=== PATIENT | female | born 1980 | race Caucasian/White ===

== ENCOUNTER 2016-08-13 15:58 | Emergency (ER) | payer MEDICAID ==
--- NOTE | 2016-08-13 16:24 | ER Document Report ---
ED Medical Screen (RME) - General Stated Complaint: LEFT FOOT TOENAIL PAIN Mode of Arrival: Ambulatory Information source: Patient Notes: Patient complains of ingrown toenail to left foot the past several months that worsened recently. Patient reports drainage from toe. No fever. No history of diabetes. I have greeted and performed a rapid initial assessment of this patient. A comprehensive ED assessment and evaluation of the patient, analysis of test results and completion of the medical decision making process will be conducted by additional ED providers. TRAVEL OUTSIDE OF THE [place] IN LAST 30 DAYS: No - Related Data Allergies/Adverse Reactions: No Known Allergies Allergy (Verified 08/13/16 16:23) Past Medical History Malignancy Medical History: Reports: Hx Cervical Cancer Musculoskeltal Medical History: Reports Hx Musculoskeletal Deformity, Reports Hx Musculoskeletal Trauma Psychiatric Medical History: Reports: Hx Anxiety, Hx Attention Deficit Hyperactivity Disorder Past Surgical History: Reports: Hx Gynecologic Surgery - multiple cone biopsies diagnostic laparoscopy, Hx Hysterectomy, Hx Orthopedic Surgery - r knee/ ganglion cyst r hand and r ankle, Hx Tubal Ligation - Immunizations Immunizations up to date: Yes Hx Diphtheria, Pertussis, Tetanus Vaccination: Yes - 04/21/2016 Physical Exam - Vital signs Vitals: Temp Pulse Resp BP Pulse Ox 98.8 F 102 H 16 121/78 99 08/13/16 16:06 08/13/16 16:06 08/13/16 16:06 08/13/16 16:06 08/13/16 16:06 - Extremities General lower extremity: Tender - Left great toe Course - Vital Signs Vital signs: Temp Pulse Resp BP Pulse Ox 98.8 F 102 H 16 121/78 99 08/13/16 16:06 08/13/16 16:06 08/13/16 16:06 08/13/16 16:06 08/13/16 16:06
[2016-08-13] MEDS ORDERED: IBUPROFEN 800 MG TABLET PO ONE (20:05)
[2016-08-13] MEDS ORDERED: CEPHALEXIN 500 MG CAPSULE PO ONE (20:05)
--- NOTE | 2016-08-13 20:09 | ER Document Report ---
ED Extremity Problem, Lower - General Chief Complaint: Toe Injury Stated Complaint: LEFT FOOT TOENAIL PAIN Time seen by provider: 20:01 Mode of Arrival: Ambulatory Information source: Patient Notes: 35-year-old female presents to ED for a complaint of an left great toe ingrown toenail for several months that seems to have gotten worse recently. She states she she has noted drainage from the toe around the toenail. TRAVEL OUTSIDE OF THE [place] IN LAST 30 DAYS: No - HPI Patient complains to provider of: Pain - Around the left great toe toenail Location: Great Toe Occurred: Other - Several months Onset/Duration: Gradual, Intermittent Quality of pain: Pressure Severity: Moderate Pain Level: 3 Context: Other - Left great toe pain around the toenail A she states drainage but no drainage noted Recent injury: No Associated symptoms: Painful ambulation Exacerbated by: Movement, Walking Relieved by: Nothing - Related Data Allergies/Adverse Reactions: No Known Allergies Allergy (Verified 08/13/16 16:23) Past Medical History - General Information source: Patient - Social History Smoking Status: Former Smoker Chew tobacco use (# tins/day): No Frequency of alcohol use: None Drug Abuse: None Occupation: [employer] Lives with: Family Family History: Arthritis, CAD, Hyperlipidemia, Hypertension, Malignancy, Thyroid Disfunction Patient has suicidal ideation: No Patient has homicidal ideation: No - Past Medical History Cardiac Medical History: Reports: None Pulmonary Medical History: Reports: Hx COPD EENT Medical History: Reports: None Neurological Medical History: Reports: None Endocrine Medical History: Reports: None Renal/ Medical History: Reports: None Malignancy Medical History: Reports: Hx Cervical Cancer GI Medical History: Reports: None Musculoskeltal Medical History: Reports Hx Arthritis, Reports Hx Musculoskeletal Deformity - Carpal tunnel, Reports Hx Musculoskeletal Trauma - 27 broken bones Skin Medical History: Reports None Psychiatric Medical History: Reports: Hx Anxiety, Hx Attention Deficit Hyperactivity Disorder Traumatic Medical History: Reports: Hx Fractures - 27 broken bones Infectious Medical History: Reports: None Past Surgical History: Reports: Hx Gynecologic Surgery - multiple cone biopsies diagnostic laparoscopy, Hx Hysterectomy, Hx Oral Surgery - [place] teeth, Hx Orthopedic Surgery - r knee/ganglion cyst r hand and r ankle, carpal tunnel, Hx Tubal Ligation - Immunizations Immunizations up to date: Yes Hx Diphtheria, Pertussis, Tetanus Vaccination: - 04/21/2016 Review of Systems - Review of Systems Constitutional: No symptoms reported EENT: No symptoms reported Cardiovascular: No symptoms reported Respiratory: No symptoms reported Gastrointestinal: No symptoms reported Genitourinary: No symptoms reported Female Genitourinary: No symptoms reported Musculoskeletal: Other - Left great toe pain Skin: Other - States she's having drainage around her left great toenail Hematologic/Lymphatic: No symptoms reported Neurological/Psychological: No symptoms reported -: Yes All other systems reviewed and negative Physical Exam - Vital signs Vitals: Temp Pulse Resp BP Pulse Ox 98.8 F 102 H 16 121/78 99 08/13/16 16:06 08/13/16 16:06 08/13/16 16:06 08/13/16 16:06 08/13/16 16:06 Interpretation: Normal - General General appearance: Appears well, Alert - HEENT Head: Normocephalic, Atraumatic Eyes: Normal Pupils: PERRL - Respiratory Respiratory status: No respiratory distress Chest status: Nontender Breath sounds: Normal Chest palpation: Normal - Cardiovascular Rhythm: Regular Heart sounds: Normal auscultation Murmur: No - Abdominal Inspection: Normal Distension: No distension Bowel sounds: Normal Tenderness: Nontender Organomegaly: No organomegaly - Back Back: Normal, Nontender - Extremities General upper extremity: Normal inspection, Nontender, Normal color, Normal ROM , Normal temperature General lower extremity: Normal inspection, Normal color, Normal ROM, Normal temperature, Normal weight bearing. No: Samara's sign Foot: Tender - Tender around the left great toe nail patient states this drainage but no drainage noted no redness noted no swelling noted. Patient states that she has had this toenail partially removed in the past - Neurological Neuro grossly intact: Yes Cognition: Normal Orientation: AAOx4 [place] Coma Scale Eye Opening: Spontaneous Sean Coma Scale Verbal: Oriented [place] Coma Scale Motor: Obeys Commands Sean Coma Scale Total: 15 Speech: Normal Motor strength normal: LUE, RUE, LLE, RLE Sensory: Normal - Psychological Associated symptoms: Normal affect, Normal mood - Skin Skin Temperature: Warm Skin Moisture: Dry Skin Color: Normal Location of irregularity: Other - Patient complains of pain and drainage around her left great toenail. No drainage no redness no swelling noted patient complains of tenderness when touched. Course - Re-evaluation Re-evalutation: 02/19/17 20:15 No acute infection noted at the left great toenail. No redness no swelling no drainage noted. Area is tender to the touch. Patient placed on Keflex and given a prescription for Keflex and ibuprofen. Patient to follow up with podiatry. - Vital Signs Vital signs: Temp Pulse Resp BP Pulse Ox 98.8 F 102 H 16 121/78 99 08/13/16 16:06 08/13/16 16:06 08/13/16 16:06 08/13/16 16:06 08/13/16 16:06 Discharge - Discharge Clinical Impression: Pain of left great toe Condition: Stable Disposition: HOME, SELF-CARE Additional Instructions: Ingrown Nail You have an ingrown nail. An ingrown nail develops when the tissues near the nail are pushed up over the nail. Irritation develops and infection follows. An ingrown nail can result from poorly fitting shoes, improper cutting of the nail, or minor injuries. Once the tissues at the edge of the nail swell, the problem can become chronic. Emergency treatment is usually removal of the portion of the nail that has become ingrown. This is followed by hot soaks three to four times a day. Antibiotics may be necessary if infection is present. After the toe heals, make certain there is no pressure on the area, either from shoes or another toe. Trim the toenails straight across, not curved back into the corners. If ingrown nails recur, an operation to remove excess tissue near the nail, or narrowing of the nail, may be necessary. Call the doctor or return if swelling increases, or red streaks, swelling, or swollen glands are found. Cephalexin The antibiotic you've been prescribed is a member of the cephalosporin class. This type of antibiotic covers a wide variety of infections, including those of the skin, lungs, and urinary tract. It's useful for staph infections. This antibiotic is slightly similar to the penicillin family. In rare cases , a person who is allergic to penicillin will also be allergic to this medication. If you have had a severe allergic reaction to penicillin, and have not taken this antibiotic since that time, notify your doctor. Antibiotics which cover many germs ("broad spectrum" antibiotics) are more likely to cause diarrhea or "yeast" infections. Women prone to vaginal yeast problems may suffer an attack after taking this antibiotic. In infants, oral thrush (white spots "stuck" on the cheek) or yeast diaper rash may result. See your doctor if these problems occur. Call at once if you develop itching, hives , shortness of breath, or lightheadedness. Ibuprofen Ibuprofen is an excellent, safe drug for pain control. In addition, it has potent antiinflammatory effects which are beneficial, especially in the treatment of injuries, arthritis, or tendonitis. It's best to take ibuprofen with food. Persons with ulcer disease or allergy to aspirin should notify their physician of this before taking ibuprofen. Take the medication exactly as prescribed. Don't take additional doses unless instructed to do so by your doctor. If you develop wheezing, shortness of breath, hives, faintness, stomach pain, vomiting, or dark black stools, return for re-evaluation at once. Epsom Salt Soaks Soak the wound area in a container of warm epsom salt water. If you can't get the wound area into a bucket or montalvo, use a folded towel soaked in the epsom salt solution and apply to the area. Use clean hot tap water (about the temperature of a very warm bath), mixing in about one (1) teaspoon for every pint of water. Two gallon --> 16 teaspoons Epsom Salts One gallon --> 8 teaspoons Epsom Salts Two quarts --> 4 teaspoons Epsom Salts One quart --> 2 teaspoons Epsom Salts Soak the wound for about 20 minutes while gently moving it around in the water. Repeat this four (4) times a day. FOLLOW-UP CARE: If you have been referred to a physician for follow-up care, call the physician s office for an appointment as you were instructed or within the next two days. If you experience worsening or a significant change in your symptoms, notify the physician immediately or return to the Emergency Department at any time for re-evaluation. Prescriptions: Ibuprofen 800 mg PO Q8HP PRN #14 tablet PRN Reason: Cephalexin Monohydrate [Keflex 500 mg Capsule] 500 mg PO QID #20 capsule Referrals: IAIN SCHULTE NP [Primary Care Provider] - Follow up as needed ARMANI BLOCK DPM [ACTIVE STAFF] - Follow up as needed
[2016-08-13 20:24] VITALS: BP 127/82
== END 2016-08-13 20:24 | disposition home or self-care (01) ==
LOC: ER 15:58
DX: L60.0 Ingrowing nail (principal); M79.675 Pain in left toe(s); J44.9 Chronic obstructive pulmonary disease, unspecified; Z85.41 Personal history of malignant neoplasm of cervix uteri; Z87.891 Personal history of nicotine dependence
CPT/HCPCS: 99283; J3490

== ENCOUNTER 2017-05-16 20:16 | Emergency (ER) | payer SELFPAY ==
--- NOTE | 2017-05-16 20:47 | ER Document Report ---
HPI - HPI Pain Level: 3 Notes: Patient is a 36-year-old female no significant past medical history presents the ED complaining of an insect bite to her left proximal tibia 1 day. Patient states that she noticed the redness around the insect bite was getting worse over the last day and becoming little more painful. Patient states the pain does not radiate. She has not noticed any obvious abscess or purulent discharge. She has not noticed any red streaks. She is otherwise eating and drink without any problems. No other concerns or complaints. Denies any drug allergies. Denies any smoking or IV drug use. Patient states that she has not been in the liu and denies any tick bite. Denies any headache, fever, URI, sore throat, chest pain, palpitations, syncope, cough, shortness of breath, wheeze, dyspnea, abdominal pain, nausea/vomiting/diarrhea, dysuria, hematuria, joint pains, numbness/tingling, muscle paralysis/weakness. No h/o MRSA. - ROS Notes: REVIEW OF SYSTEMS: CONSTITUTIONAL : Denies fever, chills, or sweats. Denies recent illness. EENT: Denies eye, ear, throat, or mouth pain or symptoms. Denies nasal or sinus congestion or discharge. Denies throat, tongue, or mouth swelling or difficulty swallowing. CARDIOVASCULAR: Denies chest pain. Denies palpitations or racing or irregular heart beat. Denies ankle edema. RESPIRATORY: Denies cough, cold, or chest congestion. Denies shortness of breath, difficulty breathing, or wheezing. GASTROINTESTINAL: Denies abdominal pain or distention. Denies nausea, vomiting , or diarrhea. GENITOURINARY: Denies difficulty urinating, painful urination, burning, frequency, blood in urine, or discharge. MUSCULOSKELETAL: Denies back or neck pain or stiffness. Denies joint pain or swelling. SKIN: see hpi NEUROLOGICAL: Denies confusion or altered mental status. Denies passing out or loss of consciousness. Denies dizziness or lightheadedness. Denies headache. Denies weakness or paralysis or loss of use of either side. Denies problems with gait or speech. Denies sensory loss, numbness, or tingling. ALL OTHER SYSTEMS REVIEWED AND NEGATIVE. Dictation was performed using [employer] voice recognition software - REPRODUCTIVE Reproductive: DENIES: : Past Medical History - Social History Smoking Status: Never Smoker Family History: Arthritis, CAD, Hyperlipidemia, Hypertension, Malignancy, Thyroid Disfunction Pulmonary Medical History: Reports: Hx COPD Renal/ Medical History: Denies: Hx Peritoneal Dialysis Malignancy Medical History: Reports: Hx Cervical Cancer Musculoskeltal Medical History: Reports Hx Arthritis, Reports Hx Musculoskeletal Deformity - Carpal tunnel, Reports Hx Musculoskeletal Trauma - 27 broken bones Psychiatric Medical History: Reports: Hx Anxiety, Hx Attention Deficit Hyperactivity Disorder Traumatic Medical History: Reports: Hx Fractures - 27 broken bones Past Surgical History: Reports: Hx Gynecologic Surgery - multiple cone biopsies diagnostic laparoscopy, Hx Hysterectomy, Hx Oral Surgery - [place] teeth, Hx Orthopedic Surgery - r knee/ganglion cyst r hand and r ankle, carpal tunnel, Hx Tubal Ligation - Immunizations Immunizations up to date: Yes Hx Diphtheria, Pertussis, Tetanus Vaccination: - 04/21/2016 Vertical Provider Document - CONSTITUTIONAL Agree With Documented VS: Yes Notes: PHYSICAL EXAMINATION: GENERAL: Well-appearing, well-nourished and in no acute distress. LUNGS: Breath sounds clear to auscultation bilaterally and equal. No wheezes rales or rhonchi. HEART: Regular rate and rhythm without murmurs, rubs, gallops. Musculoskeletal: Lt LE: FROM to passive/active. Strength 5+/5. Extremities: No cyanosis, clubbing, or edema b/l. Peripheral pulses 2+. Capillary refill less than 3 seconds. NEUROLOGICAL: Normal speech, normal gait. Normal sensory, motor exams PSYCH: Normal mood, normal affect. SKIN: There is a small scab (0.2cm) with surrounding erythema (diam-3cm) to the anterior prox tibial area. No abscess, discharge, or streaks. + mild tenderness. No erythema migrans. - INFECTION CONTROL TRAVEL OUTSIDE OF THE [place] IN LAST 30 DAYS: No - RESPIRATORY O2 Sat by Pulse Oximetry: 99 Course - Re-evaluation Re-evalutation: 05/16/17 20:45 Patient is an afebrile, well-hydrated, 36-year-old female who presents the ED with a mild cellulitis to the anterior lower leg. Vitals are stable. PE is otherwise unremarkable. No incision and drainage warranted at this time based on H&P. I will send her home with a prescription for doxycycline to take as directed. Wound instructions reviewed with close monitoring. Recheck with your PCM in 3-5 days. Return to the ED with any worsening/concerning symptoms otherwise as reviewed in discharge. Patient is in agreement. - Vital Signs Vital signs: Temp Pulse Resp BP Pulse Ox 98.0 F 60 18 119/73 99 05/16/17 20:24 05/16/17 20:24 05/16/17 20:24 05/16/17 20:24 05/16/17 20:24 Discharge - Discharge Clinical Impression: Cellulitis Qualifiers: Site of cellulitis: extremity Site of cellulitis of extremity: lower extremity Laterality: left Qualified Code(s): L03.116 - Cellulitis of left lower limb Condition: Stable Disposition: HOME, SELF-CARE Instructions: Cellulitis ([facility]), Doxycycline ([facility]) Additional Instructions: Keep the skin clean wash with soap and water Tylenol/ibuprofen if needed Epson salt soaks may help Warm compresses Apply bacitracin as directed Recheck with your PCM in 3-5 days Monitor for any other worsening symptoms Return to the ED with any worsening symptoms and/or development of fever, headache, chest pain, palpitations, syncope, shortness of breath, trouble breathing, abdominal pain, n/v/d, joint pains, red streaks, purulent discharge, abscess, or other worsening symptoms that are concerning to you. Prescriptions: Doxycycline Hyclate 100 mg PO BID #20 capsule Referrals: [facility] [Provider Group] - Follow up as needed [facility] [Provider Group] - Follow up as needed
[2017-05-16 21:02] VITALS: BP 124/83
== END 2017-05-16 21:02 | disposition home or self-care (01) ==
LOC: ER 20:16
DX: L03.116 Cellulitis of left lower limb (principal); Z85.41 Personal history of malignant neoplasm of cervix uteri; Z90.710 Acquired absence of both cervix and uterus
CPT/HCPCS: 99281

== ENCOUNTER 2017-06-07 16:21 | Emergency (ER) | payer SELFPAY ==
[2017-06-07] MEDS ORDERED: SULFAMETHOXAZOLE/TRIMETHOPRIM 800-160 MG TABLET PO ONE (16:59)
[2017-06-07] MEDS ORDERED: TRAMADOL HCL 50 MG TABLET PO ONE (16:59)
[2017-06-07] MEDS ORDERED: CEPHALEXIN 500 MG CAPSULE PO ONE (17:00)
--- NOTE | 2017-06-07 17:04 | ER Document Report ---
HPI - HPI Patient complains to provider of: skin lesions Onset: Other - 1 month Onset/Duration: Waxing and waning Quality of pain: Achy Pain Level: 4 Context: Patient reports having skin lesions pop up and resolve to her upper and lower extremities for the past month. Patient complains of a stye to her left lower eyelid for the past few days. Patient denies any history of MRSA. Patient denies any fever. Associated Symptoms: Other - Skin sores. denies: Fever Exacerbated by: Denies Relieved by: Denies Similar symptoms previously: No Recently seen / treated by doctor: No - ROS ROS below otherwise negative: Yes Systems Reviewed and Negative: Yes All other systems reviewed and negative - CONSTITUTIONAL Constitutional: DENIES: Fever - EENT EENT: REPORTS: Eye problems. DENIES: Sore Throat - RESPIRATORY Respiratory: DENIES: Trouble Breathing, Coughing - GASTROINTESTINAL Gastrointestinal: DENIES: Nausea, Patient vomiting - REPRODUCTIVE Reproductive: DENIES: : - MUSCULOSKELETAL Musculoskeletal: REPORTS: Extremity pain - DERM Notes: Skin sores Past Medical History - General Information source: Patient - Social History Smoking Status: Never Smoker Frequency of alcohol use: None Drug Abuse: None Occupation: None Lives with: Family Family History: Arthritis, CAD, Hyperlipidemia, Hypertension, Malignancy, Thyroid Disfunction Pulmonary Medical History: Reports: Hx COPD Renal/ Medical History: Denies: Hx Peritoneal Dialysis Malignancy Medical History: Reports: Hx Cervical Cancer Musculoskeltal Medical History: Reports Hx Arthritis, Reports Hx Musculoskeletal Deformity - Carpal tunnel, Reports Hx Musculoskeletal Trauma - 27 broken bones Psychiatric Medical History: Reports: Hx Anxiety, Hx Attention Deficit Hyperactivity Disorder Traumatic Medical History: Reports: Hx Fractures - 27 broken bones Past Surgical History: Reports: Hx Gynecologic Surgery - multiple cone biopsies diagnostic laparoscopy, Hx Hysterectomy, Hx Oral Surgery - [place] teeth, Hx Orthopedic Surgery - r knee/ganglion cyst r hand and r ankle, carpal tunnel, Hx Tubal Ligation - Immunizations Immunizations up to date: Yes Hx Diphtheria, Pertussis, Tetanus Vaccination: - 04/21/2016 Vertical Provider Document - CONSTITUTIONAL Agree With Documented VS: Yes Exam Limitations: No Limitations General Appearance: WD/WN, No Apparent Distress - INFECTION CONTROL TRAVEL OUTSIDE OF THE [place] IN LAST 30 DAYS: No - HEENT HEENT: Atraumatic, Normocephalic Notes: Hordeolum to left lower eyelid, no concern for orbital or preseptal cellulitis - NECK Neck: Normal Inspection - RESPIRATORY Respiratory: No Respiratory Distress O2 Sat by Pulse Oximetry: 99 - CARDIOVASCULAR Pulses: Normal: Radial - BACK Back: Normal Inspection - MUSCULOSKELETAL/EXTREMETIES Musculoskeletal/Extremeties: JOSH GALAVIZ - NEURO Level of Consciousness: Awake, Alert Motor/Sensory: No Motor Deficit - DERM Integumentary: Warm, Dry, Abscess - Patient with early abscess to dorsal aspect of left forearm. Notes: Patient with numerous scabbed skin lesions in various stages of healing Course - Re-evaluation Re-evalutation: 06/07/17 Patient educated on using Bactroban to the skin lesions as well as in the nostrils. Patient also educated on bleach baths - Vital Signs Vital signs: Temp Pulse Resp BP Pulse Ox 98.8 F 77 18 125/72 99 06/07/17 16:42 06/07/17 16:42 06/07/17 16:42 06/07/17 16:42 06/07/17 16:42 Discharge - Discharge Clinical Impression: Abscess Sty, external Qualifiers: Laterality: left Eyelid: lower Qualified Code(s): H00.015 - Hordeolum externum left lower eyelid Condition: Stable Disposition: HOME, SELF-CARE Instructions: Abscess ([facility]), Cephalexin ([facility]), Sty ([facility]), Trimethoprim-Sulfa ( [facility]), Ultram ([facility]) Additional Instructions: Return immediately for any new or worsening symptoms Followup with your primary care provider, call tomorrow to make a followup appointment 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 [Provider Group] - Follow up as needed [facility] [Provider Group] - Follow up as needed
[2017-06-07 17:43] VITALS: BP 124/80
== END 2017-06-07 17:43 | disposition home or self-care (01) ==
LOC: ER 16:21
DX: L02.414 Cutaneous abscess of left upper limb (principal); H00.015 Hordeolum externum left lower eyelid; L98.9 Disorder of the skin and subcutaneous tissue, unspecified; J44.9 Chronic obstructive pulmonary disease, unspecified; Z85.41 Personal history of malignant neoplasm of cervix uteri
CPT/HCPCS: 99283

== ENCOUNTER 2018-06-22 21:47 | Emergency (ER) | payer SELFPAY ==
[2018-06-23 01:04] LABS: APPEARANCE,URINE SLIGHTLY-CLOUDY; BILIRUBIN,URINE NEGATIVE (NEGATIVE); COLOR,URINE YELLOW; GLUCOSE, URINE NEGATIVE (NEGATIVE); KETONES,URINE NEGATIVE (NEGATIVE); LEUKOCYTE ESTERASE,URINE TRACE (NEGATIVE); NITRITE,URINE NEGATIVE (NEGATIVE); PROTEIN,URINE NEGATIVE (NEGATIVE); URINE SPECIFIC GRAVITY 1.016; UROBILINOGEN,URINE NEGATIVE mg/dL (<2.0)
[2018-06-23] MEDS ORDERED: KETOROLAC TROMETHAMINE INJ/PF 30 MG/1 ML SDV IV ONE (01:33)
[2018-06-23] MEDS ORDERED: MORPHINE SULFATE 10 MG/ML INJ IV PRN (01:33)
[2018-06-23] MEDS ORDERED: ONDANSETRON HCL INJ/PF 4 MG/2 ML SDV IV ONE (01:34)
[2018-06-23] MEDS ORDERED: TAMSULOSIN HCL 0.4 MG CAP.SR.24H PO ONE (01:34)
--- NOTE | 2018-06-23 01:36 | ER Document Report ---
ED General - General Chief Complaint: Possible Kidney Stone Stated Complaint: BLOOD IN URINE Time Seen by Provider: 06/22/18 23:48 Notes: Patient is a 37-year-old female without chronic medical problems, does have a history of nephrolithiasis in the past who presents with 3-4 days of progressively worsening pain to her left flank radiating to her left lower abdomen. States that the pain comes and goes and when it is present it is a very severe, stabbing, throbbing pain. Nothing seems to improve or worsen the pain. She has been trying ibuprofen without relief. States this feels identical to when she had a kidney stone approximately 6 months ago which was verified by CT scan. She has never had a complicated kidney stone. She denies fever or constitutional symptoms. No vomiting. She has not seen her general physician regarding today's concerns. TRAVEL OUTSIDE OF THE [place] IN LAST 30 DAYS: No - Related Data Allergies/Adverse Reactions: bees Allergy (Uncoded 06/23/18 01:35) Past Medical History - General Information source: Patient - Social History Smoking Status: Current Every Day Smoker Frequency of alcohol use: Rare Drug Abuse: None Lives with: Spouse/Significant other Family History: Arthritis, CAD, Hyperlipidemia, Hypertension, Malignancy, Thyroid Disfunction Patient has suicidal ideation: No Patient has homicidal ideation: No Pulmonary Medical History: Reports: Hx COPD, Hx Pneumonia Renal/ Medical History: Denies: Hx Peritoneal Dialysis Malignancy Medical History: Reports: Hx Cervical Cancer Musculoskeletal Medical History: Reports Hx Arthritis, Reports Hx Musculoskeletal Deformity - Carpal tunnel, Reports Hx Musculoskeletal Trauma - 27 broken bones Psychiatric Medical History: Reports: Hx Anxiety, Hx Attention Deficit Hyperactivity Disorder, Hx Post Traumatic Stress Disorder Traumatic Medical History: Reports: Hx Fractures - 27 broken bones Past Surgical History: Reports: Hx Gynecologic Surgery - multiple cone biopsies diagnostic laparoscopy, Hx Hysterectomy, Hx Oral Surgery - [place] teeth, Hx Or thopedic Surgery - r knee/ganglion cyst r hand and r ankle, carpal tunnel, Hx Tubal Ligation - Immunizations Immunizations up to date: Yes Hx Diphtheria, Pertussis, Tetanus Vaccination: Yes - 04/21/2016 Review of Systems - Review of Systems Notes: Constitutional: Negative for fever. HENT: Negative for sore throat. Eyes: Negative for visual changes. Cardiovascular: Negative for chest pain. Respiratory: Negative for shortness of breath. Gastrointestinal: Positive for left flank pain Genitourinary: Negative for dysuria. Musculoskeletal: Negative for back pain. Skin: Negative for rash. Neurological: Negative for headaches, weakness or numbness. 10 point ROS negative except as marked above and in HPI. Physical Exam - Vital signs Vitals: Temp Pulse BP Pulse Ox 97.9 F 80 116/67 100 06/22/18 22:35 06/22/18 22:35 06/22/18 22:35 06/22/18 22:35 Interpretation: Normal Notes: PHYSICAL EXAMINATION: GENERAL: Appears moderately uncomfortable but in no acute distress HEAD: Atraumatic, normocephalic. EYES: Pupils equal round and reactive to light, extraocular movements intact, sclera anicteric, conjunctiva are normal. ENT: nares patent, oropharynx clear without exudates. Moist mucous membranes. NECK: Normal range of motion, supple without lymphadenopathy LUNGS: Breath sounds clear to auscultation bilaterally and equal. No wheezes rales or rhonchi. HEART: Regular rate and rhythm without murmurs ABDOMEN: Soft, nontender, normoactive bowel sounds. No guarding, no rebound. No masses appreciated. Left CVA tenderness present on exam EXTREMITIES: Normal range of motion, no pitting or edema. No cyanosis. NEUROLOGICAL: No focal neurological deficits. Moves all extremities spontaneously and on command. PSYCH: Normal mood, normal affect. SKIN: Warm, Dry, normal turgor, no rashes or lesions noted. Course - Re-evaluation Re-evalutation: 06/23/18 01:34 Presents with findings consistent with acute nephrolithiasis. Patient does have a known history of uncomplicated kidney stones that she has passed independently on her own and has had CAT scan confirmation in the past. Urinalysis does show hematuria. Laboratory otherwise unremarkable. Pain was able to be controlled here in the emergency department. Patient is tolerating oral intake. Clinical history is not consistent with an acute abdominal aneurysm or dissection, [place], or pulmonary embolus. Urinalysis does not show findings consistent with an infected stone. We had a risks and benefits conversation about proceeding with CT today versus expectant management as well as strict return precautions. Patient and at the bedside have elected to avoid CT imaging today. Vitals have remained within normal limits. Patient will be discharged with recommendations to follow-up with urology, pain medications, and return precautions. They are in agreement with this plan and verbalized indications return to emergency department. - Vital Signs Vital signs: Temp Pulse Resp BP Pulse Ox 97.9 F 80 116/67 100 06/22/18 22:35 06/22/18 22:35 06/22/18 22:35 06/22/18 22:35 - Laboratory Result Diagrams: 06/23/18 02:34 Laboratory results interpreted by me: 06/23/18 06/23/18 00:30 02:34 Glucose 116 H Urine Blood LARGE H Ur Leukocyte Esterase TRACE H Discharge - Discharge Clinical Impression: Left flank pain, Kidney stone on left side Condition: Good Disposition: HOME, SELF-CARE Additional Instructions: Your symptoms should improve over the course of the next one week. If you continue to have pain for greater than one week or your pain is not controlled with the pain medications that you have been sent home with you need to return to the emergency department. Please also return if you develop fever, persistent vomiting, or any other symptoms that are concerning to you. You should take ibuprofen 600 mg every 6 hours and use the oral morphine as prescribed only for pain not controlled by ibuprofen. You are also been sent home with a medication called Flomax to help pass the stone. You've been given Zofran to assist with nausea. Please follow-up with urology in the next 2-3 days. Prescriptions: Morphine Sulfate [Morphine Ir 15 mg Tablet] 15 mg PO TID PRN #12 tablet PRN Reason: Tamsulosin HCl [Flomax 0.4 mg Cap.sr] 0.4 mg PO DAILY #7 cap.sr.24h
[2018-06-23 02:56] LABS: ANION GAP 11 (5-19); BLOOD UREA NITROGEN 17 mg/dL (7-20); CALCIUM 9.5 mg/dL (8.4-10.2); CARBON DIOXIDE 26 mmol/L (22-30); CHLORIDE 105 mmol/L (98-107); GLUCOSE 116 mg/dL (75-110); POTASSIUM 4.1 mmol/L (3.6-5.0); SODIUM 141.7 mmol/L (137-145)
[2018-06-23 03:28] VITALS: BP 117/83
== END 2018-06-23 03:28 | disposition home or self-care (01) ==
LOC: ER 21:47
DX: N20.0 Calculus of kidney (principal); R10.32 Left lower quadrant pain; F17.200 Nicotine dependence, unspecified, uncomplicated; J44.9 Chronic obstructive pulmonary disease, unspecified
CPT/HCPCS: 99283; 96374; 96375; 36415; 81025; 80048; 81001; J1885; J2270; J2405

== ENCOUNTER 2018-12-03 15:23 | Emergency (ER) | payer SELFPAY ==
--- NOTE | 2018-12-03 16:03 | ER Document Report ---
ED Medical Screen (RME) - General Chief Complaint: Flank Pain Stated Complaint: FLANK PAIN Time Seen by Provider: 12/03/18 15:57 TRAVEL OUTSIDE OF THE [place] IN LAST 30 DAYS: No - HPI Notes: 12/03/18 16:01 Patient is a 38-year-old female with a history of kidney stones who presents complaining of left flank pain that has been waxing and waning since this morning as well as hematuria. Patient has associated nausea without vomiting. He has not had any vaginal discharge, odor, or bleeding and reports a history of hysterectomy. Denies GRIFFIN, fever, neck pain, URI, CP, SOB, back pain, or rash. I have treated and performed a rapid initial assessment of this patient. A comprehensive ED assessment and evaluation of the patient, analysis of test results and completion of medical decision making process will be conducted by additional ED providers. PHYSICAL EXAMINATION: GENERAL: Well-appearing, well-nourished and in no acute distress. A&Ox4. Answers questions appropriately. LUNGS: Breath sounds clear to auscultation bilaterally and equal. No wheezes rales or rhonchi. HEART: Regular rate and rhythm without murmurs, rubs, gallops. ABDOMEN: Soft, nondistended abdomen. No guarding, no rebound. Normal bowel sounds present. + left CVA tenderness. + Left mild abdominal tenderness (cannot elicit thorough abd exam w/o bed, however). - Related Data Allergies/Adverse Reactions: bees Allergy (Uncoded 06/23/18 01:35) Past Medical History Pulmonary Medical History: Reports: Hx COPD, Hx Pneumonia Renal/ Medical History: Denies: Hx Peritoneal Dialysis Malignancy Medical History: Reports: Hx Cervical Cancer Musculoskeltal Medical History: Reports Hx Arthritis, Reports Hx Musculoskeletal Deformity - Carpal tunnel, Reports Hx Musculoskeletal Trauma - 27 broken bones Psychiatric Medical History: Reports: Hx Anxiety, Hx Attention Deficit Hyperactivity Disorder, Hx Post Traumatic Stress Disorder Traumatic Medical History: Reports: Hx Fractures - 27 broken bones Past Surgical History: Reports: Hx Gynecologic Surgery - multiple cone biopsies diagnostic laparoscopy, Hx Hysterectomy, Hx Oral Surgery - [place] teeth, Hx Orthopedic Surgery - r knee/ganglion cyst r hand and r ankle, carpal tunnel, Hx Tubal Ligation - Immunizations Immunizations up to date: Yes Hx Diphtheria, Pertussis, Tetanus Vaccination: Yes - 04/21/2016 Physical Exam - Vital signs Vitals: Temp Pulse Resp BP Pulse Ox 98 F 58 L 18 108/67 99 12/03/18 15:50 12/03/18 15:50 12/03/18 15:50 12/03/18 15:50 12/03/18 15:50 Course - Vital Signs Vital signs: Temp Pulse Resp BP Pulse Ox 98 F 58 L 18 108/67 99 12/03/18 15:50 12/03/18 15:50 12/03/18 15:50 12/03/18 15:50 12/03/18 15:50
[2018-12-03] MEDS ORDERED: ONDANSETRON HCL INJ/PF 4 MG/2 ML SDV IV ONE (16:04)
[2018-12-03] MEDS ORDERED: NORMAL SALINE 1000 ML 1,000 ML IV ONE (16:04)
[2018-12-03] MEDS ORDERED: MORPHINE SULFATE 10 MG/ML INJ IV ONE (16:04)
[2018-12-03] MEDS ORDERED: KETOROLAC TROMETHAMINE INJ/PF 30 MG/1 ML SDV IV ONE (16:04)
[2018-12-03 16:35] LABS: APPEARANCE,URINE SLIGHTLY-CLOUDY; BILIRUBIN,URINE NEGATIVE (NEGATIVE); COLOR,URINE YELLOW; GLUCOSE, URINE NEGATIVE (NEGATIVE); KETONES,URINE NEGATIVE (NEGATIVE); LEUKOCYTE ESTERASE,URINE SMALL (NEGATIVE); NITRITE,URINE NEGATIVE (NEGATIVE); PROTEIN,URINE NEGATIVE (NEGATIVE); URINE SPECIFIC GRAVITY 1.027; UROBILINOGEN,URINE NEGATIVE mg/dL (<2.0)
[2018-12-03 16:44] LABS: ABSOLUTE EOSINOPHILS # (AUTO) 0.2 10^3/uL (0.0-0.6); ABSOLUTE LYMPHOCYTES (AUTO) 1.8 10^3/uL (0.5-4.7); ABSOLUTE MONOCYTES (AUTO) 0.3 10^3/uL (0.1-1.4); ABSOLUTE NEUT (AUTO) 2.6 10^3/uL (1.7-8.2); EOSINOPHILS % (AUTO) 4.6 % (0-6); HEMATOCRIT 37.9 % (36.0-47.0); HEMOGLOBIN 13.1 g/dL (12.0-15.5); LYMPHOCYTES % (AUTO) 36.7 % (13-45); MEAN CORPUSCULAR HEMOGLOBIN 31.5 pg (27.0-33.4); MEAN CORPUSCULAR HGB CONC 34.7 g/dL (32.0-36.0); MEAN CORPUSCULAR VOLUME 91 fl (80-97); MONOCYTES % (AUTO) 6.3 % (3-13); PLATELET COUNT 165 10^3/uL (150-450); RED BLOOD COUNT 4.17 10^6/uL (3.72-5.28); RED CELL DISTRIBUTION WIDTH 13.1 % (11.5-14.0); SEGMENTED NEUTROPHILS % (AUTO) 51.4 % (42-78); TOTAL CELLS COUNTED % (AUTO) 100 %
--- NOTE | 2018-12-03 16:45 | RADIOLOGY REPORT (SQ) ---
EXAM DESCRIPTION: CT ABD/PELVIS NO ORAL OR IV COMPLETED DATE/TIME: 12/03/2018 4:21 pm REASON FOR STUDY: Lt flank pain COMPARISON: 09/05/2012. TECHNIQUE: CT scan of the abdomen and pelvis performed without intravenous or oral contrast. Images reviewed with lung, soft tissue, and bone windows. Reconstructed coronal and sagittal MPR images revi ewed. All images stored on PACS. All CT scanners at this facility use dose modulation, iterative reconstruction, and/or weight based d osing when appropriate to reduce radiation dose to as low as reasonably achievable (ALARA). [facility]: Dose Right [facility]: CareDose [facility]: Dose Right [facility]: Teradose 4D [facility]: Smart Promisec RADIATION DOSE: CT Rad equipment meets quality standard of care and radiation dose reduction techniq ues were employed. CTDIvol: 8.0 mGy. DLP: 433 mGy-cm.mGy. LIMITATIONS: None. FINDINGS: LOWER CHEST: No significant findings. No nodules or infiltrates. NON-CONTRASTED LIVER, SPLEEN, ADRENALS: Evaluation limited by lack of IV contrast. No identified sign ificant masses. PANCREAS: No masses. No peripancreatic inflammatory changes. GALLBLADDER: No identified stones by CT criteria. No inflammatory changes to suggest cholecystitis. RIGHT KIDNEY AND URETER: No suspicious masses. Assessment limited by lack of IV contrast. No signif icant calcifications. No hydronephrosis or hydroureter. LEFT KIDNEY AND URETER: No suspicious masses. Assessment limited by lack of IV contrast. No signifi cant calcifications. No hydronephrosis or hydroureter. AORTA AND RETROPERITONEUM: No aneurysm. No retroperitoneal masses or adenopathy. BOWEL AND PERITONEAL CAVITY: No obvious masses or inflammatory changes. No free fluid. APPENDIX: Normal. PELVIS, BLADDER, AND ABDOMINAL WALL:No abnormal masses. No free fluid. Bladder normal. BONES: No significant findings. OTHER: No other significant finding. IMPRESSION: NO SIGNIFICANT OR ACUTE PROCESS IN THE ABDOMEN OR PELVIS. COMMENT: Quality ID # [id number]: Final reports with documentation of one or more dose reduction techniques (e.g., Automated exposure control, adjustment of the mA and/or kV according to patient size, use of iterative reconstruction technique) TECHNICAL DOCUMENTATION: JOB ID: [id number] [employer]- All Rights Reserved Reading location - IP/workstation name: [email or web address]
[2018-12-03 17:15] LABS: ALANINE AMINOTRANSFERASE 18 U/L (9-52); ALBUMIN 4.7 g/dL (3.5-5.0); ALKALINE PHOSPHATASE 45 U/L (38-126); ANION GAP 9 (5-19); ASPARTATE AMINO TRANSFERASE 22 U/L (14-36); BILIRUBIN,DIRECT 0.3 mg/dL (0.0-0.4); BILIRUBIN,TOTAL 0.5 mg/dL (0.2-1.3); BLOOD UREA NITROGEN 21 mg/dL (7-20); CALCIUM 9.8 mg/dL (8.4-10.2); CARBON DIOXIDE 25 mmol/L (22-30); CHLORIDE 107 mmol/L (98-107); GLUCOSE 97 mg/dL (75-110); LIPASE 52.4 U/L (23-300); TOTAL PROTEIN 7.7 g/dL (6.3-8.2)
[2018-12-03] MEDS ORDERED: HYDROCODONE/ACETAMINOPHEN 5-325 MG TABLET PO ONE (17:43)
[2018-12-03] MEDS ORDERED: SULFAMETHOXAZOLE/TRIMETHOPRIM 800-160 MG TABLET PO ONE (17:44)
[2018-12-03 18:12] VITALS: BP 110/68
--- NOTE | 2018-12-03 19:07 | ER Document Report ---
Entered by HUDSON SAMPSON SCRIBE 12/03/18 1748 Acting as scribe for:ALESSIO WHITTEN DO ED General - General Chief Complaint: Flank Pain Stated Complaint: FLANK PAIN Time Seen by Provider: 12/03/18 15:57 Mode of Arrival: Ambulatory Information source: Patient Notes: Patient is a 38 year old female presenting to the emergency department complaining of hematuria and bilateral flank pain onset this morning. Patient states she felt like she was giving and states she passed a blood clot while urinating. She also complains of nausea, diarrhea and burning with uri nation. She denies any fevers or vomiting. Patient states she has a history of kidney stones and reports her current symptoms feel similar. TRAVEL OUTSIDE OF THE [place] IN LAST 30 DAYS: No - Related Data Allergies/Adverse Reactions: No Known Drug Allergies Allergy (Verified 12/03/18 16:53) bees Allergy (Uncoded 12/03/18 16:53) Past Medical History - General Information source: Patient - Social History Smoking Status: Former Smoker Cigarette use (# per day): No Chew tobacco use (# tins/day): No Family History: Arthritis, CAD, Hyperlipidemia, Hypertension, Malignancy, Thyroid Disfunction Patient has suicidal ideation: No Patient has homicidal ideation: No Pulmonary Medical History: Reports: Hx COPD, Hx Pneumonia Renal/ Medical History: Reports: Hx Kidney Stones Malignancy Medical History: Reports: Hx Cervical Cancer Musculoskeletal Medical History: Reports Hx Arthritis, Reports Hx Musculoskeletal Deformity - Carpal tunnel, Reports Hx Musculoskeletal Trauma - 27 broken bones Psychiatric Medical History: Reports: Hx Anxiety, Hx Attention Deficit Hyperacti vity Disorder, Hx Post Traumatic Stress Disorder Traumatic Medical History: Reports: Hx Fractures - 27 broken bones Past Surgical History: Reports: Hx Gynecologic Surgery - multiple cone biopsies diagnostic laparoscopy, Hx Hysterectomy, Hx Oral Surgery - [place] teeth, Hx Orthopedic Surgery - r knee/ganglion cyst r hand and r ankle, carpal tunnel, Hx Tubal Ligation - Immunizations Immunizations up to date: Yes Hx Diphtheria, Pertussis, Tetanus Vaccination: Yes - 04/21/2016 Review of Systems - Review of Systems Constitutional: No symptoms reported EENT: No symptoms reported Cardiovascular: No symptoms reported Respiratory: No symptoms reported Gastrointestinal: No symptoms reported Genitourinary: See HPI, Burning, Flank pain, Hematuria Female Genitourinary: No symptoms reported Musculoskeletal: No symptoms reported Skin: No symptoms reported Hematologic/Lymphatic: No symptoms reported Neurological/Psychological: No symptoms reported -: Yes All other systems reviewed and negative Physical Exam - Vital signs Vitals: Temp Pulse Resp BP Pulse Ox 98 F 58 L 18 108/67 99 12/03/18 15:50 12/03/18 15:50 12/03/18 15:50 12/03/18 15:50 12/03/18 15:50 - Notes Notes: GENERAL: Alert, interacts well. No acute distress. HEAD: Normocephalic, atraumatic. EYES: Pupils equal, round, and reactive to light. Extraocular movements intact. ENT: Oral mucosa moist, tongue midline. NECK: Full range of motion. Supple. Trachea midline. LUNGS: Clear to auscultation bilaterally, no wheezes, rales, or rhonchi. No respiratory distress. HEART: Regular rate and rhythm. No murmurs, gallops, or rubs. ABDOMEN: Soft, LLQ and suprapubic tenderness palpation. Non-distended. Bowel sounds present in all 4 quadrants. No guarding, rigidity, or rebound. EXTREMITIES: Moves all 4 extremities spontaneously. NEUROLOGICAL: Alert and oriented x3. Normal speech. PSYCH: Normal affect, normal mood. SKIN: Warm, dry, normal turgor. No rashes or lesions noted. Course - Re-evaluation Re-evalutation: 12/03/18 17:46 CBC unremarkable, CMP grossly unremarkable, lipase normal, urinalysis shows large blood, small leukocyte esterase, only 3 squamous epithelial cells. This is been sent for culture. CT scan of the abdomen pelvis does not show any signs of obstruction or stone. Suspect patient just recently passed a kidney stone and she is having residual blood and pain. We will also treat for urinary tract infection with blood using Bactrim 3-day course. Urine sent for culture. Patient discharged home. - Vital Signs Vital signs: Temp Pulse Resp BP Pulse Ox 98 F 58 L 18 108/67 99 12/03/18 15:50 12/03/18 15:50 12/03/18 15:50 12/03/18 15:50 12/03/18 15:50 - Laboratory Result Diagrams: 12/03/18 16:30 12/03/18 16:30 Laboratory results interpreted by me: 12/03/18 12/03/18 15:50 16:30 BUN 21 H Est GFR (Non-Af Amer) 57 L Urine Blood LARGE H Ur Leukocyte Esterase SMALL H Urine Ascorbic Acid 20 H Discharge - Discharge Clinical Impression: Cystitis with hematuria Condition: Stable Disposition: HOME, SELF-CARE Additional Instructions: You appear to have recently passed a kidney stone. You also have a mild urinary tract infection. Please take the Bactrim twice a day for the next 3 days. Please take ibuprofen 800 mg every 8 hours to help decrease your pain. You should also take Pyridium, this is the same thing as Azo which is available [id number], it will help to numb your kidneys, ureters and bladder to decrease the pain as the stone moves. Please return to the emergency department for worsening pain, temperature of 100.4 greater or any new or concerning symptoms. Prescriptions: Sulfamethoxazole/Trimethoprim [Bactrim Ds Tablet] 1 each PO BID #6 tablet I personally performed the services described in the documentation, reviewed and edited the documentation which was dictated to the scribe in my presence, and it accurately records my words and actions.
== END 2018-12-03 18:10 | disposition home or self-care (01) ==
LOC: ER 15:23
DX: N30.91 Cystitis, unspecified with hematuria (principal); R10.9 Unspecified abdominal pain; R11.0 Nausea; R19.7 Diarrhea, unspecified; Z87.442 Personal history of urinary calculi; Z90.710 Acquired absence of both cervix and uterus
CPT/HCPCS: 99284; 96361; 96374; 96375; 36415; 87086; 83690; 85025; 80053; 81001; 74176; J1885; J2270; J2405; J7030

== ENCOUNTER 2019-02-26 15:48 | Emergency (ER) | payer SELFPAY ==
--- NOTE | 2019-02-26 18:23 | RADIOLOGY REPORT (SQ) ---
EXAM DESCRIPTION: HAND RIGHT 3 VIEWS COMPLETED DATE/TIME: 02/26/2019 5:48 pm REASON FOR STUDY: laceration to right index finger COMPARISON: None. EXAM PARAMETERS: NUMBER OF VIEWS: Three views. TECHNIQUE: AP, lateral and oblique radiographic images acquired of the right hand. LIMITATIONS: None. FINDINGS: MINERALIZATION: Normal. BONES: No acute fracture or dislocation. No worrisome bone lesions. JOINTS: No effusions. SOFT TISSUES: No soft tissue swelling. No foreign body. OTHER: No other significant finding. IMPRESSION: No acute bony abnormality. No radiopaque foreign body. TECHNICAL DOCUMENTATION: JOB ID: [id number] [employer]- All Rights Reserved Reading location - IP/workstation name: [email or web address]
[2019-02-26] MEDS ORDERED: LIDOCAINE 1% INJ-PF (10 MG/ML) 30 ML SDV INJ ONE (18:57)
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
[2019-02-26 20:07] VITALS: BP 128/76
== END 2019-02-26 20:07 | disposition home or self-care (01) ==
LOC: ER 15:48
DX: S61.210A Laceration without foreign body of right index finger without damage to nail, initial encounter (principal); W26.0XXA Contact with knife, initial encounter; Y93.89 Activity, other specified; R03.0 Elevated blood-pressure reading, without diagnosis of hypertension; J44.9 Chronic obstructive pulmonary disease, unspecified; Z85.41 Personal history of malignant neoplasm of cervix uteri; Z91.030 Bee allergy status
CPT/HCPCS: 99283; 73130; 12002; J3490

== ENCOUNTER 2019-03-10 18:15 | Emergency (ER) | payer OTHER ==
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
[2019-03-10] MEDS ORDERED: CYCLOBENZAPRINE HCL 10 MG TABLET PO ONE (19:12)
[2019-03-10] MEDS ORDERED: OXYCODONE-ACETAMINOPHEN 5-325 MG TABLET PO ONE (19:12)
[2019-03-10] MEDS ORDERED: ONDANSETRON 4 MG TAB.RAPDIS PO ONE (19:12)
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
[2019-03-10 21:48] VITALS: BP 116/82
== END 2019-03-10 21:48 | disposition home or self-care (01) ==
LOC: ER 18:15
DX: F07.81 Postconcussional syndrome (principal); R11.2 Nausea with vomiting, unspecified; V89.2XXA Person injured in unspecified motor-vehicle accident, traffic, initial encounter; J44.9 Chronic obstructive pulmonary disease, unspecified; Z91.030 Bee allergy status; Z90.710 Acquired absence of both cervix and uterus; Z87.442 Personal history of urinary calculi
CPT/HCPCS: 70450; 72125; S0119